=== PATIENT | female | born 1955 | race Caucasian/White ===

== ENCOUNTER 2018-01-21 19:45 | Emergency (ER) | payer OTHER ==
[2018-01-21 20:08] VITALS: BP 119/70; PULSE 84; TEMP 97.8; BMI 25.7
--- NOTE | 2018-01-21 21:19 | PDOC ---
History of Present Illness - General Chief Complaint: Nausea Stated Complaint: NAUSEA/BLISTERS ON FEET Time Seen by Provider: 01/21/18 20:09 - History of Present Illness Initial Comments: This 62-year-old woman with a history of metastatic lung cancer diagnosed in 2011 and currently only on immunotherapy, presents with a few week history of itchy rash of the right leg. Patient noted rash first on the sole of her right foot. The rash was first erythematous lesions that eventually became blistered. Over the last few days, she has developed closed erythematous lesions of the proximal anterior aspect of the right thigh. No other rash noted. Patient denies fever or other constitutional symptoms. She has no history of zoster although she has had chickenpox as a child. She is unsure whether she has received this zoster immunization. Although the rash is quite itchy, she denies significant pain in the lesions Past History - Past Medical History Allergies/Adverse Reactions: Allergies Allergy/AdvReac Type Severity Reaction Status Date / Time No Known Allergies Allergy Unverified 01/21/18 19:47 Home Medications: Ambulatory Orders Bupropion HCl [Wellbutrin -] 100 mg PO Q2D 01/21/18 Escitalopram Oxalate [Lexapro -] 20 mg PO DAILY 01/21/18 Levothyroxine Sodium [Synthroid] 137 mcg PO DAILY 01/21/18 Valacyclovir HCl [Valtrex] 1,000 mg PO TID #20 tablet 01/21/18 levETIRAcetam [Keppra -] 500 mg PO BID 01/21/18 Cancer: Yes (LUNG) COPD: No Psychiatric Problems: Yes Thyroid Disease: Yes - Surgical History Lung Surgery: Yes (LOBECTOMY) - Suicide/Smoking/Psychosocial Hx Smoking History: Former smoker Have you smoked in the past 12 months: No Information on smoking cessation initiated: No Review of Systems - Review of Systems Able to Perform ROS?: Yes Comments:: 12 point review of systems is negative except for what is noted in the history of present illness *Physical Exam - Vital Signs Last Vital Signs Temp Pulse Resp BP Pulse Ox 97.8 F 84 18 119/70 94 L 01/21/18 19:59 01/21/18 19:59 01/21/18 19:59 01/21/18 19:59 01/21/18 19:59 - Physical Exam Comments: GENERAL: Adult female, alert and oriented 3, in no acute distress HEAD: Normal with no signs of trauma. EYES: PERRLA, EOMI, sclera anicteric, conjunctiva clear. ENT: Ears normal, nares patent, oropharynx clear without exudates. Dry mucous membranes. NECK: Normal range of motion, supple without lymphadenopathy, JVD, or masses. LUNGS: Breath sounds equal, clear to auscultation bilaterally. No wheezes, and no crackles. HEART:Regular rate and rhythm, normal S1 and S2 without murmur, rub or gallop. ABDOMEN:.normal bowel sounds No guarding,tenderness or rebound.No masses No distention. EXTREMITIES: Normal range of motion, no edema. No clubbing or cyanosis. No erythema, or tenderness. NEUROLOGICAL: Cranial nerves II through XII grossly intact. Normal speech. No focal neurological deficits. MUSCULOSKELETAL: Back non-tender to palpation, no CVA tenderness SKIN: Right lower extremity- Closed vesicles on erythematous base lateral portion of proximal plantar surface Erythematous, healing macules on medial portion of mid plantar surface Erythematous maculopapular scattered rash of the anterior proximal thigh Medical Decision Making - Medical Decision Making This 8-year-old woman with a history of metastatic lung cancer times several years, currently on immunotherapy but no recent chemotherapy presents with a few week history of itchy rash of the right leg. Exam as noted above. Presentation most consistent with zoster. Patient will be started on Valtrex 1000 milligrams 3 times a day for one week. First dose given here in the emergency room. Patient has not spoken to her general medical doctor (Dr. Barakat) or her oncologist regarding her rash. She has been advised strongly to follow-up with one of her doctors tomorrow, calling to arrange follow-up visit in the near future. She should return to the emergency room if she develops generalized rash, fever or severe pain *DC/Admit/Observation/Transfer Diagnosis at time of Disposition: Shingles Qualifiers: Herpes zoster complications: without complications Qualified Code(s): B02.9 - Zoster without complications - Discharge Dispostion Disposition: HOME Condition at time of disposition: Stable - Prescriptions Prescriptions: Valacyclovir HCl [Valtrex] 1,000 mg PO TID #20 tablet - Referrals Referrals: Wilbert Barakat MD [Primary Care Provider] - - Patient Instructions Printed Discharge Instructions: Shingles Additional Instructions: Valtrex 1000 mg 3 times a day for one week Call your oncologist or tomorrow and arrange follow-up within the next 5 days Return to ER if you have fever, generalized rash or vomiting - Post Discharge Activity
[2018-01-21] MEDS ORDERED: valACYclovir HCL 1000 MG TABLET PO ONE (22:24)
[2018-01-21] MEDS ORDERED: valACYclovir HCL 500 MG TABLET (FP) ONE (22:28)
== END 2018-01-21 22:32 | disposition home or self-care (01) ==
LOC: FER 19:45
DX: B02.9 Zoster without complications (principal); Z85.118 Personal history of other malignant neoplasm of bronchus and lung; E07.9 Disorder of thyroid, unspecified
CPT/HCPCS: 99282-25